=== PATIENT | female | born 1965 | race Caucasian/White ===

== ENCOUNTER 2016-08-07 11:01 | Inpatient (IN) | payer BC, MEDICARE ==
--- NOTE | ~2016-08-07 | IDS ---
Interim Discharge Summary [facility] [address] [place]. [address] NAME: JER YORK : 67 STATUS : ADM IN [facility]#: [id number] AGE: 51 ADM/REG DATE : 08/07/16 MR#: [id number] REPORT SERV DATE: 08/10/16 DICTATED BY: JR. GROVE WILLIAM JOHN DATE: 08/10/16 REPORT STATUS : Draft TRANSCRIBED BY: MODKarl DATE: 08/10/16 ADMISSION DATE: 08/07/2016 DISCHARGE DATE: This summary covers the time period from 08/07 through 08/10. WORKING DIAGNOSIS: Includes 1. Intractable nausea and vomiting. 2. Right lower lobe pneumonia on Rocephin and azithromycin. 3. Chronic obstructive pulmonary disease exacerbation. 4. Shortness of breath with chest pain. 5. Bronchiectasis with history of left upper lobe and left lower lobe lobectomy. 6. Chronic pain syndrome. 7. Hypertension. 8. History of psoriatic arthritis. 9. Antiphospholipid syndrome. 10.Weakness. OPERATIONS, PROCEDURES, AND TREATMENTS: Include 1. Portable chest x-ray done 08/07/2016, which showed mild cardiomegaly with clear lungs. 2. CT of the abdomen and pelvis done 08/07/2016, which showed no evidence of diverticulitis. There were uterine fibroids. The appendix is normal. 3. Venous Doppler ultrasound of bilateral lower extremities done 08/08/2016, showed no evidence of lower extremity deep vein thrombosis. 4. Flat and upright abdominal x-ray done 08/08/2016, showed it was normal. 5. CT of the chest without contrast done 08/09/2016, showed increased prominence of wedge- shaped opacity in the medial right lower lobe likely representing atelectasis. There was trace pleural fluid. There is tree-in-bud reticulonodular opacity in the superior segment of the right lower lobe likely infectious or inflammatory. Followup CT would be helpful to ensure clearance. 6. Blood cultures x2 done 08/07 were no growth to date. CURRENT MEDICATIONS: Please see my progress note dated 08/10. HOSPITAL COURSE: Briefly, this is a very complex 51-year-old white female with a history of psoriatic arthritis, bronchiectasis with left upper lobe and left lower lobe lobectomy in the past, antiphospholipid syndrome, with multiple allergies including IV contrast who presented to the emergency room on 08/07/2016, with complaint of nausea and vomiting. The episode began gradually with shortness of breath, cough, sore throat, fever up to 101, and headache. The sore throat and fever seemed to subside but she developed substernal chest pain and pressure while coughing and breathing with progression to nausea, vomiting, and abdominal pain. The vomiting had been intractable and therefore she presented to the emergency room. Initial exam showed temperature 99.8, heart rate 100, respiratory rate 15, and blood pressure 131/74. Lung exam showed occasional inspiratory and expiratory wheezes with Interim Discharge Summary [place] [id number] [facility] [place]. [address] NAME: JER YORK : 67 STATUS : ADM IN [facility]#: [id number] AGE: 51 ADM/REG DATE : 08/07/16 MR#: [id number] REPORT SERV DATE: 08/10/16 DICTATED BY: JR. GROVE WILLIAM JOHN DATE: 08/10/16 REPORT STATUS : Draft TRANSCRIBED BY: LIBBY DATE: 08/10/16 diminished airflow on the right. Symmetrical chest rise. Abdominal exam was unremarkable. Initial laboratory showed a white count of 9.6. Lactate of 2.1. Urinalysis without pyuria. Chest x-ray and CT of the abdomen and pelvis detailed above. The patient was admitted to the Clinical Decision Unit. Regarding the nausea and vomiting, she was given IV antiemetics requiring Zofran and Phenergan, mostly IV with eventual improvement. She was switched to a clear liquid diet, subsequently a full liquid diet, and now will be started on a regular diet. Her symptoms seemed to be abating in this regard, improving dramatically. Regarding the fever and right lower lobe pneumonia, the patient did complain of pleuritic chest pain. She has a history of antiphospholipid syndrome given the combination of chest pressure, fever, and a feeling of shortness of breath in the setting of a hypercoagulable state. I felt pulmonary embolism must be ruled out. She had a D-dimer that was negative and subsequently underwent a venous Doppler ultrasound of bilateral legs which showed no evidence of clot. Given the patient's allergy to IV contrast, this was felt to be a suitable workup for pulmonary embolism. The patient continued to be short of breath. Her symptoms changed mostly from nausea and vomiting to cough, shortness of breath, and fever. Therefore, a noncontrast CT of the chest was done and is detailed above. Her procalcitonin was low; however, clinically these findings were consistent with respiratory tract infection. She was placed on azithromycin and Rocephin with dramatic improvement in this regard. Currently she is off oxygen; however, her exam continues to show wheezing. I therefore started scheduled nebulizers, oral steroid taper, incentive spirometer, and Acapella devices with nebulizers. Regarding the antiphospholipid syndrome, she continues on Xarelto. Regarding the weakness, she is working with physical therapy. Regarding chronic pain syndrome, the patient is allergic to nearly all pain medications except IV Demerol. I chose to use Toradol for 30 mg q.6 hours as needed for two days, this was weaned to 15 mg and then switching to tramadol today. Regarding disposition, if the patient is able to tolerate diet and is off IV pain and antiemetic medications, she can likely be discharged on 08/11. For exam on the day of this summary, please see my progress note dated 08/10. WJF/LIBBY Ja Grove Jr, MD Interim Discharge Summary [address] [address] NAME: JER YORK : 67 STATUS : ADM IN [facility]#: [id number] AGE: 51 ADM/REG DATE : 08/07/16 MR#: [id number] REPORT SERV DATE: 08/10/16 DICTATED BY: JR. GROVE WILLIAM JOHN DATE: 08/10/16 REPORT STATUS : Draft TRANSCRIBED BY: LIBBY DATE: 08/10/16 / [id number] CC: Ja Grove Jr, MD Julie M Bilbrey, M.D.
--- NOTE | ~2016-08-07 | HP ---
History And Physical [place] [address] [facility] [place]. [address] NAME: JER YORK : 67 STATUS : ADM Hira PAT#: [id number] AGE: 51 ADM/REG DATE : 08/07/16 MR#: [id number] REPORT SERV DATE: 08/07/16 DICTATED BY: JR. SCRUGGS WILLIAM JOHN DATE: 08/07/16 REPORT STATUS : Draft TRANSCRIBED BY: LIBBY DATE: 08/07/16 DATE OF ADMISSION: 08/07/2016 HISTORY OF PRESENT ILLNESS: A 51-year-old white female with extensive past medical history, but surprisingly few admissions, who presented to the emergency room with complaint of nausea and vomiting. The episode began yesterday with weakness of gradual onset, followed by shortness of breath, cough, sore throat, and a fever of 101 as well as headache. Subsequently, the feeling of the sore throat and fever seemed to have subsided; however, she developed substernal chest pressure with coughing and breathing, which progressed to nausea and vomiting, which has been constant and intractable since. She says occasionally she had blood streaks in her vomitus as well as phlegm. She describes the cough is dry, productive of mostly clear phlegm. Currently, she complains of shortness of breath with intractable nausea, vomiting, and weakness. PAST MEDICAL HISTORY: Includes: 1. History of bronchiectasis with history of left upper lobe, left lower lobe lobectomies as well as of rib resection. 2. COPD/asthma. 3. Chronic congenital kidney defect. 4. Hypertension. 5. History of migraines. 6. History of psoriatic arthritis. 7. Remote history of paroxysmal atrial fibrillation, no longer on anticoagulation for this. 8. Esophageal dysmotility. 9. Gastroesophageal reflux disease. 10.Bilateral tubal ligation. 11.Cholecystectomy. 12.Tonsillectomy and adenoidectomy. 13.Possible ischemic colitis. 14.Recent oral surgery. 15.Antiphospholipid syndrome. CURRENT MEDICATIONS: Include: 1. Albuterol metered-dose inhaler two puffs four times a day as needed. 2. Albuterol nebulized four times a day as needed. 3. Otezla 30 mg twice a day. 4. Astepro nasal spray twice a day. 5. Calcium plus D 1200 mg daily. 6. Zyrtec 10 mg daily. 7. Decadron 0.5 mg daily. 8. Diltiazem 240 mg daily. 9. Benadryl 25 daily p.r.n. 10.Epinephrine autoinjector for anaphylaxis. History And Physical [address] [address] NAME: JER YORK : 67 STATUS : ADM Hira PAT#: [id number] AGE: 51 ADM/REG DATE : 08/07/16 MR#: [id number] REPORT SERV DATE: 08/07/16 DICTATED BY: JR. SCRUGGS WILLIAM JOHN DATE: 08/07/16 REPORT STATUS : Draft TRANSCRIBED BY: LIBBY DATE: 08/07/16 11.Elaine 180 mg daily. 12.Flovent high-flow aerosol two puffs twice a day. 13.Hydrocortisone suppositories as needed. 14.Levsin 0.125 four times a day as needed. 15.Linzess 145 mcg orally at bedtime. 16.Skelaxin 800 mg three times a day as needed. 17.Dulera 200/5 two puffs twice a day. 18.Singulair 10 mg after lunch. 19.Multivitamin daily. 20.Prilosec 40 daily. 21.MiraLAX 17 g daily. 22.Phenergan 25 every four hours as needed. 23.Xarelto 20 mg after supper. 24.Maxalt 10 mg as needed for migraine. 25.Spiriva HandiHaler every morning. 26.Tramadol 50 mg every four hours as needed. 27.Allergy shots. 28.Analpram hydrocortisone as needed. 29.Benefiber one dose daily. 30.Hypertonic saline nebulized twice a day. ALLERGIES: INCLUDE: 1. MOXIFLOXACIN WHICH CAUSES RASH AND ITCHING. 2. IODINATED CONTRAST WHICH CAUSES SHORTNESS OF BREATH AND ITCHING. 3. SULFA WHICH CAUSES WRAPS, RASH, AND ITCHING. 4. BENZOCAINE WHICH CAUSES ANAPHYLAXIS. 5. HALDOL WHICH CAUSES THROAT SWELLING. 6. AMERICAINE WHICH CAUSES ANAPHYLAXIS. 7. COMPAZINE WHICH MAKES HER FEEL LIKE HER FLESH IS PEELING. 8. REGLAN WHICH CAUSES HEADACHE AND FEELS LIKE COMING OUT OF THE SKIN. 9. REGLAN WHICH CAUSES ANAPHYLAXIS PAIN AND HEADACHE. 10.MORPHINE WHICH CAUSES DIFFICULTY BREATHING. 11.OXYCODONE WHICH CAUSES DIFFICULTY BREATHING. 12.HYDROMORPHONE WHICH CAUSES HEART STOPPING AND DYSPNEA. 13.LATEX WHICH CAUSES BLISTERS. 14.CATGUT SUTURES, WHICH CAUSES BLISTERS. 15.DURAPORE WHICH CAUSES BLISTERS. 16.DREXOPHED WHICH CAUSES INCREASED HEART RATE AND SHORTNESS OF BREATH. FAMILY HISTORY: Mother at age 78 of colon cancer and dementia. Father in his 70s of congestive heart failure and cardiomyopathy. SOCIAL HISTORY: Lives in [place] with her . She is disabled. Denies tobacco, alcohol, or illicit drugs. Code status is full. REVIEW OF SYSTEMS: Negative in 14 systems reviewed, except does admit to fevers, headache, dizziness with a History And Physical [address] [address] NAME: JER YORK : 67 STATUS : ADM Hira PAT#: [id number] AGE: 51 ADM/REG DATE : 08/07/16 MR#: [id number] REPORT SERV DATE: 08/07/16 DICTATED BY: JR. SCRUGGS WILLIAM JOHN DATE: 08/07/16 REPORT STATUS : Draft TRANSCRIBED BY: LIBBY DATE: 08/07/16 presyncopal feeling, chest pain with cough, shortness of breath, nausea, and vomiting. Dysuria which has resolved. Hemoptysis, myalgias and arthralgias, right hip pain, and antiphospholipid antibody. PHYSICAL EXAMINATION: VITAL SIGNS: Temperature 99.8, heart rate 100, respiratory rate 15, blood pressure 131/74. GENERAL: The patient is alert, oriented, rather dramatic. HEENT: Her pupils are equal, round, and reactive to light. Extraocular motion intact. Sclerae anicteric. Oropharynx clear. Mucosal membranes appear dry. NECK: Supple. No jugular venous distention, thyromegaly, or bruits. LUNGS: Had occasional inspiratory, expiratory wheezes with diminished airflow on the right, symmetrical chest rise. CARDIOVASCULAR: S1 and S2 without gallop, murmur, or rub. There is regular rate and rhythm. ABDOMEN: Soft, obese, nontender. Bowel sounds present. EXTREMITIES: Showed no clubbing, cyanosis, or edema. NEUROLOGICAL: Cranial nerves II through XII are intact. Strength and sensation were full and equal throughout. LYMPH NODE SURVEY: Negative in cervical and supraclavicular region. PSYCH: Appropriate mood and affect, somewhat blunted. DERM: No rashes or other lesions noted. LABORATORY DATA: White count of 9.6, hemoglobin 13, platelets 261, PT 14, INR 1.1, mean corpuscular volume 100.3. Sodium 137, potassium 3.5, chloride 99, bicarbonate 28, BUN 7, creatinine 0.6, glucose 113, lactate of 2.1, calcium 9, total protein 7.6, albumin 3.7, total bilirubin 0.2, alkaline phosphatase 145, AST of 17, ALT of 33, lipase 98. Urinalysis was without pyuria. Chest x-ray showed cardiomegaly, otherwise clear. CT of the abdomen and pelvis showed uterine fibroids with normal appendix. No other acute findings. ASSESSMENT AND PLAN: This is a 51-year-old white female with: 1. Intractable nausea and vomiting with occasional streaks of blood, most likely gastroenteritis with normal CT of the abdomen and pelvis and no significant diarrhea, likely Brandi-Paul tear causing occasional streaks of blood. We will give antiemetics, analgesia, bowel rest, and IV fluids. If considerable blood, we would consider GI evaluation. 2. Shortness of breath in the setting of pleuritic chest pain, occasional blood in her phlegm with a history of antiphospholipid syndrome as well as bronchiectasia, cannot rule out pulmonary embolism; however, the patient is allergic to IV dye making CT angiogram more difficult. We will therefore check a venous Doppler ultrasound of bilateral legs and a D-dimer and proceed as needed. 3. Chronic obstructive pulmonary disease with exacerbation. We will give nebulizers every four hours. Continue her other inhaled medications. 4. History of bronchiectasis with a history of bilobar lobectomy. 5. History of weakness. Request bedside commode. 6. Pain. We will provide analgesia. The patient is allergic to all IV pain medications, except fentanyl which could not be given IV in the CDU. We will therefore give her 12.5 mcg Duragesic patch. 7. Hypertension. Continue home medications. History And Physical [address] [place]. [address] NAME: JER YORK : 67 STATUS : ADM Hira PAT#: [id number] AGE: 51 ADM/REG DATE : 08/07/16 MR#: [id number] REPORT SERV DATE: 08/07/16 DICTATED BY: JR. SCRUGGS WILLIAM JOHN DATE: 08/07/16 REPORT STATUS : Draft TRANSCRIBED BY: LIBBY DATE: 08/07/16 8. History of psoriatic arthritis. Continue analgesia. 9. Antiphospholipid antibody. Continue her Xarelto. 10.Observation status. 11.I will follow this patient. WVickyF/LIBBY Ja Scruggs Jr, MD / [id number] CC: Ja Scruggs Jr, MD
--- NOTE | ~2016-08-07 | DS ---
Discharge Summary [place] [address] [place]. [address] NAME: JER YORK : 67 STATUS : ADM IN [facility]#: [id number] AGE: 51 ADM/REG DATE : 08/07/16 MR#: [id number] REPORT SERV DATE: 08/11/16 DICTATED BY: TIO COON DATE: 08/11/16 REPORT STATUS : Draft TRANSCRIBED BY: MODL DATE: 08/11/16 ADMISSION DATE: 08/07/2016 DISCHARGE DATE: 08/11/2016 FINAL HOSPITAL DIAGNOSES: 1. Nausea and vomiting, resolved. 2. Right lower lobe pneumonia. 3. Chronic obstructive pulmonary disease. 4. Bronchiectasis. 5. Chronic pain. 6. Hypertension. 7. Psoriasis. 8. Antiphospholipid syndrome. CONSULTATIONS AND PROCEDURES: As listed in interim summary. CURRENT PHYSICAL FINDINGS AND HISTORY OF PRESENT ILLNESS: Please see dictated H and P as well as interim summary by Dr. Grove. I took over the patient's care on 08/11. The patient's nausea and vomiting had resolved. She was tolerating p.o. On her physical exam, she had some mild rhonchi in the right base. Otherwise. She was ambulatory, off O2, and was having no further complaints. She received her dose of IV antibiotics on 08/11 and was discharged home. Prescriptions were written for Omnicef 300 b.i.d. for six days to continue a 10-day course of treatment. Prednisone 40, 20, 10 q.3 day taper, prescription was written. She was advised to follow up with her PCP in 7-10 days and her key account manager as needed. MEDICATIONS: We will otherwise be resuming her home medicines. Astelin nasal spray, calcium plus D, Decadron 0.5 daily, Cartia XT 240, Elaine 180, Zyrtec 10, Linzess 145, Singulair 10, multivitamin, Prilosec 40, Xarelto 20, Spiriva, albuterol MDI and inhaler, Dulera two puffs b.i.d., Otezla, Phenergan 25, Ultram 50 q.4, Flovent two puffs b.i.d., Skelaxin 800 t.i.d., Levsin 0.125, EpiPen, Maxalt 10, allergy shots, Analpram 1%, Anusol-HC 25, Benadryl 25, MiraLax, Benefiber, and Hyper-Octavio 3.5% inhaled b.i.d. TLF/MODL Tio Coon M.D. / [id number] CC: Ekaterina Nascimento M.D.
[~2016-08-07 11:01] MED LIST: ACCUNE1 INH; ADVIL PO; ALLEGRA180 PO; ALLERGY INJ; ALLERGY INJECTION; ALLERGY INJECTION IM; ANUSOL HC SUPP1 SUPP PR; ARAVA20 PO; ASAB PO; ASTELIN NAS; ASTEPRO0.15 % NAS; AUG875 PO; B COMPLEX-C OR; BEN25 PO; BENEFIBE6 PO; BENTYL10 PO; CALTRA600D PO; CARD60 PO; CARTIA XT240 MG/24 PO; DILT-XR120 MG PO; DULERA 200 MCG/13 GM INH; DYCYCLOMINE; FIBER SUPPLEMENT; FLEXI JOIN1 PO; FLOVENT220 INH; FOLIC PO; ILEVRO OP; IMITREX100 MG PO; LEVSINTAB PO; LINZESS 145 M145 MCG PO; LOTEMAX OPH SUSP5 ML OPH; MAXALT10 MG PO; MIRALAXPKT PO; MOMUD PO; MTX2.5 PO; MULTIPLE VIT PO; MULTIVIT/MIN PO; MURO1282% OPH; NATURL FIBER68 % PO; OCUVITE PO; P1 PO; PHILLIPS PROBIOTIC PO; PRILOSEC40 MG PO; PROAIR HFA INH; PROBIOTICS; PROBIOTICS PO; PROVENTSOL INH; SINGULAIR1 PO; SODIUM CHLOR3 %; SODIUM CHLORIDE; SODIUM CHLORIDE 10%; SODIUM CHLORIDE 7% PO; SPIRIVA INH; SYMBICORT 160/41 INH INH; ULTRAM50 PO; URO-MAG140 MG PO; VITC500 PO; XARELTO20 MG PO; XOLAIR SC; ZITH250 PO; ZYRTEC ALLGY10 MG PO; [UNRECOGNIZED DRUG - CODE] PO; [UNRECOGNIZED DRUG - OTHER]; [UNRECOGNIZED DRUG - REMARK] OR
[2016-08-07 12:35] LABS: BASOPHILS 0.2 %; BASOPHILS ABSOLUTE 0.02 10/3/uL (0.0-0.16); EOSINOPHILS 0.4 %; EOSINOPHILS ABSOLUTE 0.04 10/3/uL (0.0-0.53); ER CBC TAT 0 Hrs 08 Mins; HEMATOCRIT 39.9 % (36.0-48.0); IMMATURE GRANULOCYTES 0.5 %; IMMATURE GRANULOCYTES ABSOLUTE 0.05 10/3/uL (0.0-0.11); LYMPHOCYTES 10.9 %; LYMPHOCYTES ABSOLUTE 1.04 10/3/uL (0.67-4.30); MEAN CORPUS HGB CONC 32.6 g/dL (32.0-36.0); MEAN CORPUSCULAR HEMOGLOB 32.7 pg (26.0-34.0); MEAN CORPUSCULAR VOLUME 100.3 fL (80-100); MEAN PLATELET VOLUME 9.4 fL (9.2-13.0); MONOCYTES 5.4 %; MONOCYTES ABSOLUTE 0.52 10/3/uL (0.21-1.20); NEUTROPHILS 82.6 %; PLATELET COUNT 261 10/3/uL (150-400); RED CELL COUNT 3.98 10/6/uL (4.0-5.6); WHITE BLOOD CELLS 9.6 10/3/uL (4.5-10.5)
[2016-08-07 12:36] LABS: MANUAL DIFF NO %
[2016-08-07 12:41] LABS: INTERNATIONAL NORMAL RATI 1.1 UNITS (-)
[2016-08-07 12:44] LABS: ASCORBIC ACID (UR NOT ORDER) NEG (NEG); BILIRUBIN, URINE NEGATIVE (NEG); KETONE, URINE NEGATIVE (NEG); LEUKOCYTE ESTERASE(NOT OR NEG (NEG); NITRITE (URINE) NEG (NEG); WBC (NOT ORDERED) (RFLEX) < 1 (0-5)
[2016-08-07 12:51] LABS: A/G RATIO 0.9 (0.7-1.9); ALBUMIN 3.7 G/DL (3.5-5.0); ALKALINE PHOSPHATASE 145 U/L (45-117); BUN (BLOOD UREA NITROGEN) 7 MG/DL (6-23); CHLORIDE, SERUM 99 MMOL/L (96-112); CO2 (CARBON DIOXIDE) 28 MMOL/L (24-34); CREATININE 0.63 MG/DL (0.55-1.02); GFR AFRICAN AMERICAN 121 ML/MIN (>=60); GFR NON AFRICAN AMERICAN 105 ML/MIN (>=60); GLOBULIN 3.9 G/DL (2.5-4.1); GLUCOSE, SERUM 113 MG/DL (60-99); POTASSIUM, SERUM 3.5 MMOL/L (3.5-5.3); SGOT(AST) 17 U/L (5-40); SGPT(ALT) 33 U/L (5-65); SODIUM, SERUM 137 MMOL/L (135-148); TOTAL BILIRUBIN 0.2 MG/DL (0-1.2); TOTAL PROTEIN 7.6 G/DL (6.0-8.5)
[2016-08-07] MEDS ORDERED: PR25 PO (14:18)
[2016-08-07] MEDS ORDERED: XARELTO20 MG PO (14:18)
[2016-08-07] MEDS ORDERED: OTEZLA30 MG PO (14:18)
[2016-08-07] MEDS ORDERED: CARTIA XT240 MG/24 PO (14:19)
[2016-08-07] MEDS ORDERED: ULTRAM50 PO (14:19)
[2016-08-07] MEDS ORDERED: SINGULAIR1 PO (14:20)
[2016-08-07] MEDS ORDERED: PRILOSEC40 MG PO (14:20)
[2016-08-07] MEDS ORDERED: FLOVENT220 INH (14:20)
[2016-08-07] MEDS ORDERED: SPIRIVA INH (14:20)
[2016-08-07] MEDS ORDERED: DEXA5B PO (14:21)
[2016-08-07] MEDS ORDERED: SKELAXIN8 PO (14:22)
[2016-08-07] MEDS ORDERED: ALBUTEROL0.083 % INH (14:22)
[2016-08-07] MEDS ORDERED: EPIPEN0.3 IM (14:23)
[2016-08-07] MEDS ORDERED: LEVSINTAB PO (14:23)
[2016-08-07] MEDS ORDERED: LINZESS 145 M145 MCG PO (14:24)
[2016-08-07] MEDS ORDERED: MAXALT10 MG PO (14:25)
[2016-08-07] MEDS ORDERED: DULERA 200 MCG/13 GM INH (14:25)
[2016-08-07] MEDS ORDERED: ALLEGRA180 PO (14:26)
[2016-08-07] MEDS ORDERED: ALLERGY SHOTS SC (14:27)
[2016-08-07] MEDS ORDERED: ANALPRAM HC TOP (14:28)
[2016-08-07] MEDS ORDERED: BEN25 PO (14:29)
[2016-08-07] MEDS ORDERED: ANUSOL-HC25 MG PR (14:29)
[2016-08-07] MEDS ORDERED: MIRALAX POWDER1 PKT PO (14:30)
[2016-08-07] MEDS ORDERED: BENEFIBER PO ×2 (14:30→14:31)
[2016-08-07] MEDS ORDERED: CALTRA600D PO (14:31)
[2016-08-07] MEDS ORDERED: ASTEPRO0.15 % NAS (14:31)
[2016-08-07] MEDS ORDERED: SODIUM CHLORIDE INH (14:32)
[2016-08-07] MEDS ORDERED: PROAIR HFA INH (14:33)
[2016-08-07] MEDS ORDERED: MULTIVIT/MIN PO (14:33)
[2016-08-07] MEDS ORDERED: ZYRTEC ALLGY10 MG PO (14:34)
[2016-08-08 04:18] LABS: IMMATURE GRANULOCYTES ABSOLUTE 0.02 10/3/uL (0.0-0.11); MANUAL DIFF NO %
[2016-08-08 05:21] LABS: BASOPHILS 0.4 %; BASOPHILS ABSOLUTE 0.03 10/3/uL (0.0-0.16); EOSINOPHILS 0.1 %; EOSINOPHILS ABSOLUTE 0.01 10/3/uL (0.0-0.53); HEMATOCRIT 38.5 % (36.0-48.0); IMMATURE GRANULOCYTES 0.3 %; LYMPHOCYTES 11.8 %; LYMPHOCYTES ABSOLUTE 0.84 10/3/uL (0.67-4.30); MEAN CORPUS HGB CONC 33.8 g/dL (32.0-36.0); MEAN CORPUSCULAR HEMOGLOB 33.2 pg (26.0-34.0); MEAN CORPUSCULAR VOLUME 98.5 fL (80-100); MEAN PLATELET VOLUME 9.7 fL (9.2-13.0); MONOCYTES 11.2 %; NEUTROPHILS 76.2 %; NEUTROPHILS ABSOLUTE 5.42 10/3/uL (2.02-8.40); PLATELET COUNT 274 10/3/uL (150-400); RBC DISTRIBUTION WIDTH 13.1 % (12.0-16.0); RED CELL COUNT 3.91 10/6/uL (4.0-5.6); WHITE BLOOD CELLS 7.1 10/3/uL (4.5-10.5)
[2016-08-08 05:42] LABS: BUN (BLOOD UREA NITROGEN) 7 MG/DL (6-23); CALCIUM, SERUM 8.6 MG/DL (8.5-10.4); CHLORIDE, SERUM 98 MMOL/L (96-112); CO2 (CARBON DIOXIDE) 24 MMOL/L (24-34); CREATININE 0.48 MG/DL (0.55-1.02); GFR AFRICAN AMERICAN 133 ML/MIN (>=60); GFR NON AFRICAN AMERICAN 114 ML/MIN (>=60); GLUCOSE, SERUM 88 MG/DL (60-99); PHOSPHORUS, SERUM 3.6 MG/DL (2.5-4.5); POTASSIUM, SERUM 3.6 MMOL/L (3.5-5.3); SODIUM, SERUM 134 MMOL/L (135-148)
[2016-08-09 05:48] LABS: BASOPHILS 0.2 %; BASOPHILS ABSOLUTE 0.01 10/3/uL (0.0-0.16); EOSINOPHILS 0.2 %; EOSINOPHILS ABSOLUTE 0.01 10/3/uL (0.0-0.53); HEMATOCRIT 41.1 % (36.0-48.0); HEMOGLOBIN 13.8 g/dL (12.0-16.0); IMMATURE GRANULOCYTES 0.4 %; IMMATURE GRANULOCYTES ABSOLUTE 0.02 10/3/uL (0.0-0.11); LYMPHOCYTES ABSOLUTE 1.28 10/3/uL (0.67-4.30); MEAN CORPUS HGB CONC 33.6 g/dL (32.0-36.0); MEAN CORPUSCULAR VOLUME 98.3 fL (80-100); MEAN PLATELET VOLUME 9.9 fL (9.2-13.0); MONOCYTES 19.8 %; MONOCYTES ABSOLUTE 0.94 10/3/uL (0.21-1.20); NEUTROPHILS 52.4 %; NEUTROPHILS ABSOLUTE 2.48 10/3/uL (2.02-8.40); PLATELET COUNT 271 10/3/uL (150-400); RBC DISTRIBUTION WIDTH 13.1 % (12.0-16.0); RED CELL COUNT 4.18 10/6/uL (4.0-5.6); WHITE BLOOD CELLS 4.7 10/3/uL (4.5-10.5)
[2016-08-09 05:54] LABS: MANUAL DIFF NO %
[2016-08-09 06:03] LABS: A/G RATIO 0.7 (0.7-1.9); ALBUMIN 3.1 G/DL (3.5-5.0); BUN (BLOOD UREA NITROGEN) 7 MG/DL (6-23); CHLORIDE, SERUM 105 MMOL/L (96-112); CO2 (CARBON DIOXIDE) 21 MMOL/L (24-34); CREATININE 0.63 MG/DL (0.55-1.02); GFR AFRICAN AMERICAN 121 ML/MIN (>=60); GFR NON AFRICAN AMERICAN 105 ML/MIN (>=60); GLOBULIN 4.5 G/DL (2.5-4.1); GLUCOSE, SERUM 86 MG/DL (60-99); POTASSIUM, SERUM 3.8 MMOL/L (3.5-5.3); SGOT(AST) 25 U/L (5-40); SGPT(ALT) 40 U/L (5-65); SODIUM, SERUM 139 MMOL/L (135-148); TOTAL PROTEIN 7.6 G/DL (6.0-8.5)
[2016-08-09 06:06] LABS: ALKALINE PHOSPHATASE 125 U/L (45-117); TOTAL BILIRUBIN 0.7 MG/DL (0-1.2)
[2016-08-09 06:26] LABS: PROCALCITONIN 0.05 ng/mL (<0.5)
[2016-08-11 06:04] LABS: BUN (BLOOD UREA NITROGEN) 10 MG/DL (6-23); CALCIUM, SERUM 8.9 MG/DL (8.5-10.4); CHLORIDE, SERUM 109 MMOL/L (96-112); CO2 (CARBON DIOXIDE) 23 MMOL/L (24-34); CREATININE 0.59 MG/DL (0.55-1.02); GFR AFRICAN AMERICAN 124 ML/MIN (>=60); GFR NON AFRICAN AMERICAN 107 ML/MIN (>=60); GLUCOSE, SERUM 123 MG/DL (60-99); POTASSIUM, SERUM 4.2 MMOL/L (3.5-5.3); SODIUM, SERUM 143 MMOL/L (135-148)
[2016-08-11 06:10] LABS: BASOPHILS 0.5 %; BASOPHILS ABSOLUTE 0.02 10/3/uL (0.0-0.16); EOSINOPHILS 0 %; HEMATOCRIT 40.4 % (36.0-48.0); HEMOGLOBIN 13.3 g/dL (12.0-16.0); IMMATURE GRANULOCYTES 0.3 %; IMMATURE GRANULOCYTES ABSOLUTE 0.01 10/3/uL (0.0-0.11); LYMPHOCYTES 17.6 %; LYMPHOCYTES ABSOLUTE 0.65 10/3/uL (0.67-4.30); MEAN CORPUS HGB CONC 32.9 g/dL (32.0-36.0); MEAN CORPUSCULAR HEMOGLOB 32.8 pg (26.0-34.0); MEAN CORPUSCULAR VOLUME 99.8 fL (80-100); MEAN PLATELET VOLUME 9.4 fL (9.2-13.0); MONOCYTES ABSOLUTE 0.63 10/3/uL (0.21-1.20); NEUTROPHILS 64.6 %; NEUTROPHILS ABSOLUTE 2.39 10/3/uL (2.02-8.40); PLATELET COUNT 300 10/3/uL (150-400); RBC DISTRIBUTION WIDTH 13.1 % (12.0-16.0); RED CELL COUNT 4.05 10/6/uL (4.0-5.6); WHITE BLOOD CELLS 3.7 10/3/uL (4.5-10.5)
[2016-08-11 06:11] LABS: MANUAL DIFF NO %
[2016-08-11] MEDS ORDERED: P20 PO (18:32)
[2016-08-11] MEDS ORDERED: ZITH250 PO (18:33)
[2016-08-11] MEDS ORDERED: OMNICEF300 PO (18:35)
== END 2016-08-11 19:08 | disposition home or self-care (01) | DRG 190 ==
LOC: ER 11:01 → CDU1 14:12 → 4SO 08-08 16:56
PROVIDERS: Emergency Medicine; Internal Medicine
DX: J44.0 Chronic obstructive pulmonary disease with (acute) lower respiratory infection (principal); K22.6 Gastro-esophageal laceration-hemorrhage syndrome; J18.9 Pneumonia, unspecified organism; D68.61 Antiphospholipid syndrome; L40.50 Arthropathic psoriasis, unspecified; J44.1 Chronic obstructive pulmonary disease with (acute) exacerbation; I10 Essential (primary) hypertension; K52.9 Noninfective gastroenteritis and colitis, unspecified; G89.4 Chronic pain syndrome; R53.1 Weakness; Z90.2 Acquired absence of lung [part of]; Z91.041 Radiographic dye allergy status; Z79.01 Long term (current) use of anticoagulants
CPT/HCPCS: 71010; 71250; 74020; 74176; 80048; 80053; 81001; 83605; 83690; 83735; 84100; 84145; 85025; 85379; 85610; 87040; 93005; 93970; 94640; 96374; 96375; 97116-GP; 97161-GP; 99285; A9270-GY; G8978-CK-GP; G8979-CI-GP; J0456; J1885; J2405; J2550; J3010